=== PATIENT | male | born 2000 | race Caucasian/White ===

== ENCOUNTER 2021-06-11 20:26 | Observation (INO) | payer OTHER ==
[2021-06-11] MEDS ORDERED: ACETAMINOPHEN TAB 650MG DOSE (2X325MG) PO PRN (21:20)
[2021-06-11 21:45] VITALS: BP 127/82
[2021-06-11] MEDS ORDERED: CHLORASEPTIC SPRAY MT PRN (22:15)
[2021-06-11] MEDS ORDERED: FLUTICASONE PROP 0.05% NASAL SPRAY 16 GM (FLONASE) NARES PRN (22:15)
[2021-06-11] MEDS: ceFAZolin SOD 1 GM in D5W MINI-BAG PLUS 50 ML IV SCH (22:41)
[2021-06-12] VITALS (9 sets, daily range): BP systolic 122–155; BP diastolic 71–90
[2021-06-12 00:08] LABS: MONO SCRN NEGATIVE (NEGATIVE)
[2021-06-12] MEDS: NS 1,000 ML IV SCH ×3 (00:25→10:00)
[2021-06-12] MEDS: ceFAZolin SOD 1 GM in D5W MINI-BAG PLUS 50 ML IV SCH ×3 (05:37→21:06)
[2021-06-12 07:25] LABS: BASO % 0.4 % (0.0-1.0); EOS # 0.4 10^3/uL (0.0-0.5); EOS % 4.1 % (0.0-3.0); HEMATOCRIT 37.1 % (42.0-52.0); LYMPH # 2.2 10^3/uL (1.5-5.0); LYMPH % 22.1 % (24.0-44.0); MEAN CORPUSCULAR HEMOGLOBIN 31.6 pg (27.0-33.0); MONO # 1.5 10^3/uL (0.0-0.8); MONO % 14.9 % (2.0-8.0); NEUTROPHILS # 5.8 10^3/uL (1.5-8.5); NEUTROPHILS % 58.2 % (36.0-66.0); PLATELET COUNT, AUTOMATED 194 10^3/uL (150-450); RED BLOOD COUNT 4.12 10^6/uL (4.30-6.10); WHITE BLOOD COUNT 9.9 10^3/uL (4.0-10.0)
[2021-06-12 07:32] LABS: INR 1.11; PARTIAL THROMBOPLASTIN TIME 32.3 SECONDS (25.9-37.0); PROTHROMBIN TIME 14.7 SECONDS (12.7-14.5)
[2021-06-12 07:44] LABS: BLOOD UREA NITROGEN 9 MG/DL (7-18); CALCIUM LEVEL 8.3 MG/DL (8.5-10.1); CARBON DIOXIDE LEVEL 26 MEQ/L (21-32); CHLORIDE LEVEL 109 MEQ/L (98-107); CREATININE FOR GFR 0.76 MG/DL (0.70-1.30); GLUCOSE, FASTING 93 MG/DL (70-100); POTASSIUM SERUM 3.9 MEQ/L (3.5-5.1); SODIUM LEVEL 141 MEQ/L (136-145)
[2021-06-12] MEDS ORDERED: LIDOCAINE 2% 100MG/5ML SDV (FOR ANES.) As Ordered ONE (09:14)
[2021-06-12] MEDS ORDERED: fentaNYL 100 MCG/2 ML INJECTION As Ordered ONE ×3 (09:14→12:27)
[2021-06-12] MEDS ORDERED: propofoL 200 MG/20 ML VIAL As Ordered ONE (09:14)
[2021-06-12] MEDS ORDERED: MIDAZOLAM INJ 2MG/2ML VIAL (J2250 PER 1MG) As Ordered ONE (09:15)
[2021-06-12] MEDS ORDERED: LIDOCAINE 1% SDV 30ML VIAL As Ordered ONE (09:25)
[2021-06-12] MEDS ORDERED: BUPIVACAINE HCL 0.25% 30ML VIAL As Ordered ONE (09:25)
[2021-06-12] MEDS ORDERED: ceFAZolin 2 GM/D5W 50 ML IV BAG (J0690 PER 500MG) As Ordered ONE (09:50)
[2021-06-12] MEDS ORDERED: dexameTHASONE 4 MG/ML 1ML VIAL (J1100 PER 1MG) As Ordered ONE (10:23)
[2021-06-12] MEDS ORDERED: KETOROLAC 60MG 2ML VIAL As Ordered ONE (10:23)
[2021-06-12] MEDS ORDERED: ONDANSETRON 4MG/2ML VIAL As Ordered ONE (10:23)
[2021-06-12] MEDS ORDERED: METOCLOPRAMIDE INJ 10MG/2ML VIAL (J2765 PER 1) As Ordered ONE (10:27)
[2021-06-12] MEDS ORDERED: ACETAMINOPHEN 1000MG 100ML IV BTL (OFIRMEV) (J0131 PER 10MG) As Ordered ONE (11:41)
[2021-06-12] MEDS ORDERED: BACITRACIN OINTMENT 30GM TUBE As Ordered ONE (11:56)
[2021-06-12] MEDS: fentaNYL 100 MCG/2 ML INJECTION IV PRN ×2 (12:27→12:32)
[2021-06-12] MEDS ORDERED: ONDANSETRON 4MG/2ML VIAL IV PRN (12:35)
[2021-06-12] MEDS ORDERED: oxyCODONE 5MG TAB PO PRN (12:35)
[2021-06-12] MEDS ORDERED: LR 1,000 ML IV SCH (12:35)
[2021-06-12] MEDS: KETOROLAC 30 MG/ML 1ML VIAL IV PRN (21:06)
[2021-06-13] MEDS: ceFAZolin SOD 1 GM in D5W MINI-BAG PLUS 50 ML IV SCH ×2 (05:32→13:45)
[2021-06-13 06:00] VITALS: BP 143/90
[2021-06-13] MEDS: KETOROLAC 30 MG/ML 1ML VIAL IV PRN (07:46)
[2021-06-13] MEDS ORDERED: ENOXAPARIN 40MG/0.4ML SYRINGE (J1650 PER 10MG) SC SCH (12:00)
[2021-06-13 14:00] VITALS: BP 147/90
== END 2021-06-13 14:50 | disposition home or self-care (01) ==
LOC: INTOOBSV 21:45 → M MS5PR 21:45
PROVIDERS: ADMIT Family Medicine; ATTEND Family Medicine
DX: S66.121A Laceration of flexor muscle, fascia and tendon of left index finger at wrist and hand level, initial encounter (principal); S56.222A Laceration of other flexor muscle, fascia and tendon at forearm level, left arm, initial encounter; S61.512A Laceration without foreign body of left wrist, initial encounter; X78.1XXA Intentional self-harm by knife, initial encounter; Y92.89 Other specified places as the place of occurrence of the external cause; Y93.9 Activity, unspecified; Y99.9 Unspecified external cause status; R45.851 Suicidal ideations; J02.9 Acute pharyngitis, unspecified; F32.9 Major depressive disorder, single episode, unspecified
CPT/HCPCS: 10180; 11760; 25260; 25270; 26418; 36415; 80048; 85025; 85610; 85730; 86308; 96365; 96366; 96375; 96376; J0131; J0690; J1100; J1885; J2250; J2405; J2765; J3010